=== PATIENT | female | born 1995 | race Caucasian/White ===

== ENCOUNTER 2018-09-18 14:21 | Emergency (ER) | payer OTHER ==
[~2018-09-18] VITALS: Ht 162.6 cm; Wt 64.3 kg
[2018-09-18 14:34] VITALS: BP 116/71
[2018-09-18] MEDS ORDERED: BIRTH CONTROL (14:39)
[2018-09-18] MEDS ORDERED: PLEASE ENTER HEIGHT AND WEIGHT MC SCH (15:00)
[2018-09-18] MEDS ORDERED: DIPH,PERTUSS(ACELL),TET VAC/PF 0.5 ML IM-VACC ONE ×2 (15:00→15:21)
[2018-09-18] MEDS ORDERED: PLEASE ENTER ALLERGIES MC SCH (15:00)
[2018-09-18] MEDS ORDERED: NORG1TAB6 PO (15:27)
[2018-09-18] MEDS ORDERED: BACITRACIN ZINC OINT 500U/GM, 0.9 GM ONE (16:18)
== END 2018-09-18 16:30 | disposition home or self-care (01) ==
LOC: ED 15:05
DX: S61.552A Open bite of left wrist, initial encounter (principal); S61.452A Open bite of left hand, initial encounter; W54.0XXA Bitten by dog, initial encounter; Y93.89 Activity, other specified; Y92.89 Other specified places as the place of occurrence of the external cause; Y99.8 Other external cause status
CPT/HCPCS: 99284